=== PATIENT | male | born 1960 | race Hispanic/Latino ===

== ENCOUNTER → 2021-04-19 | Emergency (ER) | payer OTHER ==
[~2021-04-19] VITALS: Ht 165.1 cm; Wt 59.0 kg
[~2021-04-19] MED LIST: CYCL10 PO; CYCLOBENZAPRINE HCL 10 MG TABLET PO ONE; KETOROLAC 30MG VIAL (30MG/ML) IV ONE; NAPR-1180 PO; PROMETHAZINE HCL 25 MG/ML 1ML AMPULE IM ONE
[2021-04-19 13:10] LABS: BASOPHILS % (AUTO) 0.7 % (0.0-5.0); LYMPHOCYTES % (AUTO) 26.9 % (21.0-51.0); MEAN CORPUSCULAR HEMOGLOBIN 30.1 pg (27.0-33.0); MEAN CORPUSCULAR HGB CONC 33.3 g/dL (32.0-36.0); MEAN CORPUSCULAR VOLUME 90.5 fL (79-99); MONOCYTES % (AUTO) 8.8 % (3.0-13.0); NEUTROPHILS % (AUTO) 62.3 % (40.0-77.0); PLATELET COUNT (AUTO) 247 K/uL (130-400); RED BLOOD CELL COUNT(AUTO) 4.75 MIL/uL (4.50-6.20); RED CELL DISTRIBUTION WIDTH 12.6 % (11.0-15.5); WHITE BLOOD COUNT (AUTO) 7.1 K/uL (4.8-10.8)
[2021-04-19 13:15] LABS: POTASSIUM 4.4 mmol/L (3.5-5.1)
[2021-04-19 13:20] LABS: ALBUMIN 3.8 g/dL (3.5-5.0); BILIRUBIN,TOTAL 0.4 mg/dL (0.2-1.0); TOTAL PROTEIN, SERUM 7.3 g/dL (6.0-8.3)
[2021-04-19 14:32] VITALS: BP 144/72
== END | disposition home or self-care (01) ==
LOC: EDH 13:18 → EDBD 13:18
DX: G43.009 Migraine without aura, not intractable, without status migrainosus (principal); Z79.1 Long term (current) use of non-steroidal anti-inflammatories (NSAID)
CPT/HCPCS: 36415; 70450; 80053; 85025; 93005; 96372; 96374; 99285; J1885; J2550

== ENCOUNTER 2021-12-22 10:46 | Emergency (ER) | payer OTHER ==
[~2021-12-22] VITALS: Ht 165.1 cm; Wt 61.2 kg
[~2021-12-22 10:46] MED LIST changes: -CYCL10 PO; +CYCL10TA16 PO; -CYCLOBENZAPRINE HCL 10 MG TABLET PO ONE; -KETOROLAC 30MG VIAL (30MG/ML) IV ONE; -PROMETHAZINE HCL 25 MG/ML 1ML AMPULE IM ONE
[2021-12-22 11:13] LABS: BASOPHILS % (AUTO) 0.9 % (0.0-5.0); EOSINOPHILS % (AUTO) 0.7 % (0.0-8.0); HEMATOCRIT 42.9 % (42-54); LYMPHOCYTES % (AUTO) 25.2 % (21.0-51.0); MEAN CORPUSCULAR HGB CONC 33.1 g/dL (32.0-36.0); MEAN CORPUSCULAR VOLUME 90.5 fL (79-99); MONOCYTES % (AUTO) 9.2 % (3.0-13.0); NEUTROPHILS % (AUTO) 63.7 % (40.0-77.0); PLATELET COUNT (AUTO) 253 K/uL (130-400); RED BLOOD CELL COUNT(AUTO) 4.74 MIL/uL (4.50-6.20); RED CELL DISTRIBUTION WIDTH 12.9 % (11.0-15.5); WHITE BLOOD COUNT (AUTO) 6.9 K/uL (4.8-10.8)
[2021-12-22 11:16] LABS: POTASSIUM 4.3 mmol/L (3.5-5.1)
[2021-12-22 11:20] LABS: ALBUMIN 3.7 g/dL (3.5-5.0); BILIRUBIN,TOTAL 0.5 mg/dL (0.2-1.0); TOTAL PROTEIN, SERUM 6.9 g/dL (6.0-8.3)
[2021-12-22 11:46] VITALS: BP 108/65
== END 2021-12-22 12:30 | disposition home or self-care (01) ==
LOC: EDH 10:49
DX: R00.2 Palpitations (principal); Z53.21 Procedure and treatment not carried out due to patient leaving prior to being seen by health care provider
CPT/HCPCS: 36415; 80053; 84484; 85025; 93005